=== PATIENT | male | born 1995 | race Caucasian/White ===

== ENCOUNTER 2017-02-18 06:38 | Emergency (ER) | payer BC, OTHER ==
[2017-02-18 06:53] VITALS: BP 120/68; PULSE 54; RESP 20; TEMP 97.6; O2SAT 98
[2017-02-18] MEDS ORDERED: LIDOCAINE HCL 1% MDV SOL SC ONE (07:44)
[2017-02-18] MEDS ORDERED: LIDOCAINE HCL 1% MPF SOL ONE (07:45)
== END 2017-02-18 08:15 | disposition home or self-care (01) ==
LOC: ED 06:38
DX: S61.213A Laceration without foreign body of left middle finger without damage to nail, initial encounter (principal); S60.411A Abrasion of left index finger, initial encounter; W22.8XXA Striking against or struck by other objects, initial encounter
CPT/HCPCS: 99282 ×3; J2001; 73140